=== PATIENT | female | born 2000 | race Caucasian/White ===

== ENCOUNTER 2023-09-28 19:47 | Emergency (ER) | payer OTHER ==
[2023-09-28 20:05] VITALS: RESP 18; BMI 21.0
[2023-09-28 21:55] LABS: BASO % 0.5 % (0-2.0); HEMATOCRIT 36.6 % (32.4-45.2); HEMOGLOBIN 12.1 GM/dL (10.7-15.3); LYMPH % 17.9 % (8-40); MCH 29.7 pg (25.7-33.7); MCHC 33.2 g/dl (32.0-36.0); MEAN CELL VOLUME 89.7 fl (80-96); MEAN PLT VOLUME 8.9 fl (7.5-11.1); MONO % 6.9 % (3.8-10.2); NEUT % 73.7 % (42.8-82.8); PLATELET COUNT 285 10^3/uL (134-434); RBC 4.08 M/mm3 (3.60-5.2); RDW 12.6 % (11.6-15.6); WHITE BLOOD COUNT 19.7 K/mm3 (4.0-10.0)
[2023-09-28 21:55] LABS: HCG,QUALITATIVE URINE Positive
[2023-09-28 21:59] LABS: EPI CELLS 17 /uL (0-25.1); HYALINE CASTS 0 /uL (0-3.1); URINE APPEARANCE CLEAR; URINE BILIRUBIN NEGATIVE (NEGATIVE); URINE COLOR YELLOW; URINE GLUCOSE (UA) NEGATIVE (NEGATIVE); URINE KETONE 3+ (NEGATIVE); URINE LEUK ESTERASE TRACE (NEGATIVE); URINE NITRITE NEGATIVE (NEGATIVE); URINE PROTEIN NEGATIVE (NEGATIVE); URINE RBC 18 /uL (0-23.9); URINE WBC 16 /uL (0-25.8)
[2023-09-28 22:16] LABS: POTASSIUM 3.7 mmol/L (3.5-5.1)
[2023-09-28 22:18] LABS: ALBUMIN 4.3 g/dl (3.4-5.0); BLOOD UREA NITROGEN 6.8 mg/dL (7-18); CALCIUM 9.8 mg/dL (8.5-10.1)
[2023-09-28 22:22] LABS: CREATININE 0.5 mg/dL (0.55-1.3)
[2023-09-28 22:23] LABS: BILIRUBIN,TOTAL 0.7 mg/dL (0.2-1); TOT PROT 7.8 g/dl (6.4-8.2)
[2023-09-28] MEDS: SODIUM CHLORIDE 0.9% 500 ML INFUS.BAG IV ONE (22:38)
[2023-09-28 23:09] LABS: URINE BACTERIA 19.3 /uL (0-1359)
[2023-09-29 02:16] VITALS: BP 120/72; PULSE 104; TEMP 97.3
== END 2023-09-29 02:30 | disposition home or self-care (01) ==
LOC: JER 19:47
DX: O20.8 Other hemorrhage in early pregnancy (principal); O26.891 Other specified pregnancy related conditions, first trimester; R10.9 Unspecified abdominal pain; Z3A.01 Less than 8 weeks gestation of pregnancy
CPT/HCPCS: 36415; 76817-TC; 80053; 81003; 84702; 84703; 85025; 86850; 86900; 86901; 88305-TC; 99284-25